=== PATIENT | male | born 1965 | race Two or more races ===

== ENCOUNTER 2017-07-26 16:39 | Emergency (ER) | payer SELFPAY ==
[2017-07-26] MEDS ORDERED: Sodium Chloride 0.9% 1,000 ML IV STA (17:17)
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
[2017-07-26 17:50] LABS: BASO % 0.3 % (0.0-2.0); EOS # 0.2 K/uL (0.0-0.7); EOS % 1.4 % (0.0-4.0); HEMOGLOBIN 13.4 g/dL (12.0-18.0); LYMPH # 2.3 K/uL (1.0-4.3); LYMPH % 20.1 % (20.0-40.0); MEAN CORPUSCULAR HEMOGLOBIN 29.5 pg (27.0-31.0); MEAN CORPUSCULAR HGB CONC 32.7 g/dL (33.0-37.0); MEAN PLATELET VOLUME 8.6 fl (7.2-11.7); MONO # 1.3 K/uL (0.0-0.8); MONO % 11.2 % (0.0-10.0); NEUT # 7.7 K/uL (1.8-7.0); RBC 4.56 Mil/uL (4.40-5.90); RED CELL DISTRIBUTION WIDTH 13.1 % (11.5-14.5); WHITE BLOOD COUNT 11.5 K/uL (4.8-10.8)
[2017-07-26 17:59] LABS: ALB/GLOB RATIO 1.3 (1.0-2.1); ALBUMIN 4.5 g/dL (3.5-5.0); ALT/SGPT 56 U/L (21-72); AST/SGOT 64 U/L (17-59); BLOOD UREA NITROGEN 14 mg/dl (9-20); CALCIUM 8.8 mg/dL (8.4-10.2); GFR AFRICAN-AMERICAN > 60; GFR NON-AFRICAN AMERICAN > 60
--- NOTE | 2017-07-26 18:11 | CT ---
PROCEDURE: CT HEAD WITHOUT CONTRAST. HISTORY: ETOH, Head injury COMPARISON: None available. TECHNIQUE: Axial computed tomography images were obtained through the head/brain without intravenous contrast. Radiation dose: Total exam DLP = 845.06 mGy-cm. This CT exam was performed using one or more of the following dose reduction techniques: Automated exposure control, adjustment of the mA and/or kV according to patient size, and/or use of iterative reconstruction technique. FINDINGS: HEMORRHAGE: No acute parenchymal, subarachnoid or extra-axial hemorrhage. . BRAIN: There is a vague area of low attenuation in the left perifrontal horn white matter that probably represents an area of chronic ischemia. . Suspect very minimal chronic periventricular white matter ischemic changes as well. Ventricular and sulcal size are within range of normal for this patient's stated age. Note made of a tiny elliptical shaped extra-axial calcification bordering the inner table of the left frontotemporal region that may represent a tiny at dural based calcification however the possibility of an incidental very tiny meningioma cannot be excluded. VENTRICLES: No obstructive hydrocephalus. CALVARIUM: There are no acute calvarial fractures. Probable left anterior nasal bone fracture deformity felt be chronic due to the lack of significant overlying soft tissue swelling. PARANASAL SINUSES: Unremarkable as visualized. No significant inflammatory changes. MASTOID AIR CELLS: Unremarkable as visualized. No inflammatory changes. OTHER FINDINGS: None. IMPRESSION: No acute intracranial hemorrhage. Probable chronic ischemic focus in the left perifrontal horn white matter. Suspect minimal chronic periventricular white matter ischemic changes. Probable small dural base calcification left frontotemporal region however the possibility of a very tiny calcified meningioma not excluded. Chronic left-sided anterior nasal bone fracture deformity.
[2017-07-26] MEDS ORDERED: Potassium CL 10mEq/100ml 100 ML IVPB ONE (20:00)
--- NOTE | 2017-07-26 20:25 | ED PDOC ---
- Laboratory Results Result Diagrams: 07/26/17 17:45 07/26/17 17:45 - ECG O2 Sat by Pulse Oximetry: 96 Pulse Ox Interpretation: Normal Medical Decision Making Medical Decision Making: Case was signed out to medical underwriter from DARYA Deluca pending sobriety and final disposition 8:30 pm: patient is asleep, arousable, vital signs stable 10:30 pm: patient is arousable, still has slurred speech, vital signs stable, will continue to monitor 12:30 am: patient is asleep, more alert but still intoxicated, vital signs are stable 2:30 am: Patient is awake and alert, with steady gait, he is stable for discharge. Disposition - Clinical Impression Clinical Impression: Alcohol abuse with intoxication - POA Present On Arrival: None - Disposition Referrals: [facility] [Outside] Disposition: Routine/Home Disposition Time: 02:30 Condition: STABLE Instructions: Alcohol Intoxication (ED) Forms: [facility] (Uzbek) Print Language: KHMER
[2017-07-27 05:13] VITALS: BP 138/78; PULSE 86; RESP 18; TEMP 98.9
[2017-07-27 05:14] VITALS: O2SAT 96
== END 2017-07-27 02:30 | disposition home or self-care (01) ==
LOC: H.ER 16:39 → EDBD 16:39 → H.ER 07-27 02:30
DX: F10.129 Alcohol abuse with intoxication, unspecified (principal); S01.81XA Laceration without foreign body of other part of head, initial encounter; S00.81XA Abrasion of other part of head, initial encounter; W19.XXXA Unspecified fall, initial encounter; Y92.89 Other specified places as the place of occurrence of the external cause
CPT/HCPCS: 70450; 80053; 82948; 85025; 96360; 99283; G0480; J7040

== ENCOUNTER 2018-08-21 01:12 | Inpatient (IN) | payer MEDICAID, MEDICARE, OTHER ==
--- NOTE | 2018-08-21 02:10 | ED PDOC ---
HPI: Chest Pain Time Seen by Provider: 08/21/18 01:27 Chief Complaint (Nursing): Shortness Of Breath Chief Complaint (Provider): Chest Pain History Per: EMS History/Exam Limitations: intoxication Additional Complaint(s): 52 years old male with no PMHx brought in by EMS for evaluation of chest pain. On arrival, patient appears intoxicated, unable provide history to provider. Per EMS, patient is homeless. PMD: None provided Past Medical History Reviewed: Historical Data, Nursing Documentation, Vital Signs Vital Signs: Last Vital Signs Temp 97.1 F L 08/21/18 01:15 Pulse 111 H 08/21/18 01:15 Resp 16 08/21/18 02:02 BP 192/86 H 08/21/18 01:15 Pulse Ox 100 08/21/18 02:02 - Medical History PMH: No Chronic Diseases - Surgical History Surgical History: No Surg Hx - Family History Family History: States: Unknown Family Hx - Social History Current smoker - smoking cessation education provided: No (Unknown) Alcohol: Other (Unknown) Drugs: Other (Unknown) - Immunization History Hx Tetanus Toxoid Vaccination: (Pt nonverbal) Hx Influenza Vaccination: (Pt nonverbal) Hx Pneumococcal Vaccination: (Pt nonverbal) - Home Medications Home Medications: Ambulatory Orders Medication Instructions Recorded RX: Unobtainable 08/21/18 - Allergies Allergies/Adverse Reactions: Allergies Allergy/AdvReac Type Severity Reaction Status Date / Time No Known Allergies Allergy Verified 08/21/18 01:17 Review of Systems Review Of Systems: ROS cannot be obtained secondary to pt's inabilty to answer questions. Physical Exam - Reviewed Nursing Documentation Reviewed: Yes Vital Signs Reviewed: Yes - Physical Exam Appears: Positive for: No Acute Distress Head Exam: Positive for: ATRAUMATIC, NORMOCEPHALIC Skin: Positive for: Normal Color, Warm, Dry Eye Exam: Positive for: Normal appearance, EOMI, PERRL ENT: Positive for: Normal ENT Inspection Neck: Positive for: Normal, Painless ROM, Supple Cardiovascular/Chest: Positive for: Regular Rate, Rhythm. Negative for: Murmur Respiratory: Positive for: Normal Breath Sounds. Negative for: Respiratory Distress Gastrointestinal/Abdominal: Positive for: Normal Exam, Soft. Negative for: Te nderness Back: Positive for: Normal Inspection. Negative for: L CVA Tenderness, R CVA Tenderness Extremity: Positive for: Normal ROM. Negative for: Pedal Edema, Swelling Neurologic/Psych: Positive for: Alert, Other (Speech slurred) - Laboratory Results Result Diagrams: 08/21/18 02:11 08/21/18 02:11 - ECG O2 Sat by Pulse Oximetry: 100 (RA) Pulse Ox Interpretation: Normal Medical Decision Making Medical Decision Making: Time: 127 Initial Impression: 52 years old male with chest pain, as reported by history alcohol intoxication. 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 Normal size of the ventricles and extra-axial spaces for the patient's age. Normal white matter tracts of the supratentorial brain. Normal basal ganglia and thalami. Normal brainstem. Normal cerebellum. There is no demonstrated extra-axial, intraparenchymal, or intraventricular hemorrhage. There are no findings of an acute ischemic infarction. Normal calvarium. There is no demonstrated fracture. Normal soft tissue structures. Normal visualized paranasal sinuses. IMPRESSION: Normal unenhanced CT scan of the brain. 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 0628 Labs reviewed and show no clinically significant abnormality. CXR shows no active disease. Patient is more conversant and admits to heavy smoking. Patient received 3 Duonebs, SOLU-Medrol and Narcan and has persistent tachypnea and hypoxia. Will place on observation for COPD exacerbation. Case referred to Dr. Ramirez. Scribe Attestation: Documented by Fatoumata Esteves, acting as a scribe for Rayray Cobb MD. Provider Scribe Attestation: All medical record entries made by the Scribe were at my direction and personally dictated by me. I have reviewed the chart and agree that the record accurately reflects my personal performance of the history, physical exam, medical decision making, and the department course for this patient. Disposition - Clinical Impression Clinical Impression: COPD exacerbation - Patient ED Disposition Is Patient to be Admitted: Yes - Disposition Disposition Time: 06:28 Condition: FAIR
[2018-08-21] MEDS ORDERED: Albuterol-Ipratrop 3 mg / 0.5 (3 ml) UD INH STA ×2 (02:11→04:42)
[2018-08-21 02:17] LABS: BASO # 0.1 K/uL (0.0-0.2); BASO % 0.4 % (0.0-2.0); EOS # 0.4 K/uL (0.0-0.7); EOS % 2.6 % (0.0-4.0); HEMOGLOBIN 11.9 g/dL (12.0-18.0); LYMPH # 1.4 K/uL (1.0-4.3); LYMPH % 9.8 % (20.0-40.0); MEAN CELL VOLUME 90.7 fl (80.0-94.0); MEAN CORPUSCULAR HEMOGLOBIN 29.4 pg (27.0-31.0); MEAN CORPUSCULAR HGB CONC 32.5 g/dL (33.0-37.0); MEAN PLATELET VOLUME 7.5 fl (7.2-11.7); MONO # 1.2 K/uL (0.0-0.8); MONO % 8.6 % (0.0-10.0); NEUT # 11.3 K/uL (1.8-7.0); NEUT % 78.6 % (50.0-75.0); PLATELET COUNT 332 K/uL (130-400); RBC 4.05 Mil/uL (4.40-5.90); RED CELL DISTRIBUTION WIDTH 12.8 % (11.5-14.5); WHITE BLOOD COUNT 14.4 K/uL (4.8-10.8)
[2018-08-21 02:27] LABS: ALB/GLOB RATIO 0.9 (1.0-2.1); ALBUMIN 3.5 g/dL (3.5-5.0); ALT/SGPT 35 U/L (21-72); AST/SGOT 31 U/L (17-59); BLOOD UREA NITROGEN 10 mg/dl (9-20); CALCIUM 8.7 mg/dL (8.4-10.2); GFR NON-AFRICAN AMERICAN > 60
[2018-08-21] MEDS ORDERED: Albuterol-Ipratrop 3 mg / 0.5 (3 ml) UD ONE ×2 (02:29→05:07)
[2018-08-21] MEDS ORDERED: Naloxone 0.4 mg/ml Inj (Adult) IVP ONE (03:14)
[2018-08-21] MEDS ORDERED: Naloxone 0.4 mg/ml Inj (Adult) ONE (03:32)
[2018-08-21 04:37] LABS: ANISOCYTOSIS SLIGHT; BANDS 1 % (0-2); BASOPHIL 1 % (0-2); EOSINOPHIL 2 % (0-7); LYMPHOCYTE 5 % (20-50); MONOCYTE 7 % (0-10); NEUTROPHIL 84 % (42-75); PLATELET ESTIMATE NORMAL (NORMAL); TOTAL CELLS COUNTED 100
[2018-08-21 04:38] LABS: HYPOCHROMIC SLIGHT; LARGE PLATELETS PRESENT; SPHEROCYTES SLIGHT
[2018-08-21] MEDS ORDERED: Magnesium Sulfate 2 gm/50 ml 2 GM/50 ML BAG IV STA (04:42)
[2018-08-21] MEDS ORDERED: Magnesium Sulfate 2 gm/50 ml 2 GM/50 ML BAG ONE (05:06)
[2018-08-21 06:21] LABS: SQUAMOUS EPITHIAL < 1 /hpf (0-5); URINE BACTERIA RARE (<OCC); URINE BILIRUBIN NEGATIVE (NEGATIVE); URINE BLOOD SMALL (NEGATIVE); URINE CLARITY CLOUDY (Clear); URINE COLOR YELLOW (YELLOW); URINE GLUCOSE (UA) NEG (NEGATIVE); URINE LEUKOCYTE ESTERASE NEG Leu/uL (Negative); URINE PROTEIN 100 mg/dL (NEGATIVE)
[2018-08-21 06:25] LABS: BARBITURATES, UR NEGATIVE (NEGATIVE); BENZODIAZEPINES, UR NEGATIVE (NEGATIVE); OPIATES, UR NEGATIVE (NEGATIVE); PHENCYCLIDINE, UR NEGATIVE (NEGATIVE)
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
[2018-08-21] MEDS ORDERED: methylPREDNISolone 40 MG in Sodium Chloride 0.9% 50 ML IVPB SCH (10:00)
--- NOTE | 2018-08-21 10:32 | CT ---
Date of service: 08/21/2018 PROCEDURE: CT HEAD WITHOUT CONTRAST. HISTORY: weakness COMPARISON: 07/26/2017. CT head TECHNIQUE: Axial computed tomography images were obtained through the head/brain without intravenous contrast. Supplemental Coronal and Sagittal projections created and reviewed. Radiation dose: Total exam DLP = <inf_radiation_dlp> mGy-cm. This CT exam was performed using one or more of the following dose reduction techniques: Automated exposure control, adjustment of the mA and/or kV according to patient size, and/or use of iterative reconstruction technique. FINDINGS: HEMORRHAGE: No intracranial hemorrhage. BRAIN: No mass effect or edema. No atrophy or chronic microvascular ischemic changes. VENTRICLES: Unremarkable. No hydrocephalus. CALVARIUM: Unremarkable. PARANASAL SINUSES: Unremarkable as visualized. No significant inflammatory changes. MASTOID AIR CELLS: Unremarkable as visualized. No inflammatory changes. OTHER FINDINGS: None. IMPRESSION: No acute intracranial abnormalities. No significant findings to account for the clinical presentation. No significant interval change compared to the prior examination(s). Concordant results (preliminary interpretation) provided by [facility]. Procedure Completed: 04:51. Preliminary Report: Dictated and Authenticated: 05:18. Final Interpretation: 10:28.
[2018-08-21] MEDS: Albuterol-Ipratrop 3 mg / 0.5 (3 ml) UD INH SCH ×4 (11:13→23:09)
[2018-08-21] MEDS: guaiFENesin 600 mg ER Tab PO SCH ×2 (11:37→21:33)
[2018-08-21] MEDS: MethylPREDNISolone 40 mg Vial IVP SCH ×3 (11:38→22:22)
[2018-08-21] MEDS: Azithromycin 500 MG in Sodium Chloride 0.9% 250 ML IVPB SCH (11:39)
[2018-08-21] MEDS: Insulin Regular 100 units/ml SC SCH ×3 (11:50→22:44)
[2018-08-21] MEDS ORDERED: Dextrose 50% SYRINGE Inj (50 ml) IV PRN (12:08)
[2018-08-21] MEDS ORDERED: Glucagon Recombinant 1 mg Inj IM PRN (12:08)
[2018-08-21 12:28] VITALS: BMI 28.0
[2018-08-21] MEDS: Sodium Chloride 0.9% 1,000 ML IV SCH ×2 (12:58→20:05)
[2018-08-21] MEDS ORDERED: Insulin Regular 100 units/ml IV ONE (13:58)
--- NOTE | 2018-08-21 14:21 | RAD ---
Date of service: 08/21/2018 HISTORY: Chest pain. COMPARISON: No prior. FINDINGS: LUNGS: No active pulmonary disease. PLEURA: No significant pleural effusion identified, no pneumothorax apparent. CARDIOVASCULAR: No atherosclerotic calcification present No radiographic findings to suggest acute or significant cardiovascular disease. OSSEOUS STRUCTURES: No significant abnormalities. VISUALIZED UPPER ABDOMEN: Normal. OTHER FINDINGS: None. IMPRESSION: No active disease.
[2018-08-21] MEDS: Enoxaparin 40 mg Syringe SC SCH (14:34)
--- NOTE | 2018-08-21 14:35 | CP.PCM.CON ---
History of Present Illness - History of Present Illness History of Present Illness: 52 y/o M with PMHx of HTN, DM, diabetes, COPD and alcohol abuse brought to ED by EMS after patient was found altered mentation and and reporting chest pain on street. pt on evaluation reported psychiatric diagnosis of alcohol dependence and depression, reported experiencing non command auditory hallucinations during alcohol withdrawal, has previous hospitalizations at [facility] for depression and alcohol withdrawal , currently non compliant with treatment or follow up pt at current mental status , oriented to person , place and time, reported feeling down with constricted affect, thought form circumstantial, reported non command auditory hallucinations of faint voices, denied any current suicidal or homicidal ideation, fair insight and judgment Past Patient History - Past Social History Alcohol: Other (Unknown) Drugs: Other (Unknown) - PSYCHIATRIC Hx Substance Use: (Pt nonverbal) Meds Allergies/Adverse Reactions: Allergies Allergy/AdvReac Type Severity Reaction Status Date / Time No Known Allergies Allergy Verified 08/21/18 01:17 - Medications Medications: Current Medications Albuterol/Ipratropium (Duoneb 3 Mg/0.5 Mg (3 Ml) Ud) 3 ml INH RQ4 [facility] Last Admin: 08/21/18 11:13 Dose: Not Given Dextrose (Dextrose 50% Inj) 0 ml IV STAT PRN; Protocol PRN Reason: Hypoglycemia Protocol Dextrose (Glutose 15) 0 gm PO ONCE PRN; Protocol PRN Reason: Hypoglycemia Protocol Enoxaparin Sodium (Lovenox) 40 mg SC DAILY [facility]; Protocol Glucagon (Glucagen Diagnostic Kit) 0 mg IM STAT PRN; Protocol PRN Reason: Hypoglycemia Protocol Guaifenesin (Mucinex La) 600 mg PO Q12 [facility] Last Admin: 08/21/18 11:37 Dose: 600 mg Azithromycin 500 mg/ Sodium (Chloride) 250 mls @ 250 mls/hr IVPB DAILY [facility]; Protocol Last Admin: 08/21/18 11:39 Dose: 250 mls/hr Sodium Chloride (Sodium Chloride 0.9%) 1,000 mls @ 150 mls/hr IV .Q6H40M [facility] Stop: 08/22/18 12:16 Last Admin: 08/21/18 12:58 Dose: 150 mls/hr Insulin Human Regular (Humulin R) 0 units SC ACHS [facility]; Protocol Last Admin: 08/21/18 11:50 Dose: 6 units Methylprednisolone (Solu-Medrol) 40 mg IVP Q6H [facility] Last Admin: 08/21/18 11:38 Dose: 40 mg Nystatin (Nystop Topical Powder) 1 applic TOP TID [facility] Results - Vital Signs Recent Vital Signs: Last Vital Signs Temp 98.0 F 08/21/18 09:16 Pulse 102 H 08/21/18 09:16 Resp 22 08/21/18 09:16 BP 125/74 08/21/18 09:16 Pulse Ox 95 08/21/18 09:16 - Labs Result Diagrams: 08/21/18 02:11 08/21/18 02:11 Labs: Laboratory Results - last 24 hr 08/21/18 08/21/18 08/21/18 02:01 02:11 02:11 WBC 14.4 H RBC 4.05 L Hgb 11.9 L Hct 36.8 MCV 90.7 MCH 29.4 MCHC 32.5 L RDW 12.8 Plt Count 332 D MPV 7.5 Neut % (Auto) 78.6 H Lymph % (Auto) 9.8 L [place] % (Auto) 8.6 Eos % (Auto) 2.6 Baso % (Auto) 0.4 Neut # (Auto) 11.3 H Lymph # (Auto) 1.4 [place] # (Auto) 1.2 H Eos # (Auto) 0.4 Baso # (Auto) 0.1 Neutrophils % (Manual) 84 H Band Neutrophils % 1 Lymphocytes % (Manual) 5 L Monocytes % (Manual) 7 Eosinophils % (Manual) 2 Basophils % (Manual) 1 Platelet Estimate Normal Large Platelets Present Hypochromasia (manual) Slight Anisocytosis (manual) Slight Spherocytes Slight Sodium 134 Potassium 4.4 Chloride 90 L Carbon Dioxide 32 H Anion Gap 16 BUN 10 Creatinine 0.6 L Est GFR ( Amer) > 60 Est GFR (Non-Af Amer) > 60 POC Glucose (mg/dL) 214 H Random Glucose 224 H Calcium 8.7 Total Bilirubin 0.3 AST 31 ALT 35 Alkaline Phosphatase 112 Troponin I < 0.0120 NT-Pro-B Natriuret Pep Total Protein 7.3 Albumin 3.5 D Globulin 3.8 Albumin/Globulin Ratio 0.9 L Urine Color Urine Clarity Urine pH Ur Specific [place] Urine Protein Urine Glucose (UA) Urine Ketones Urine Blood Urine Nitrate Urine Bilirubin Urine Urobilinogen Ur Leukocyte Esterase Urine RBC (Auto) Urine Microscopic WBC Ur Squamous Epith Cells Urine Bacteria Urine Opiates Screen Urine Methadone Screen Ur Barbiturates Screen Ur Phencyclidine Scrn Ur Amphetamines Screen U Benzodiazepines Scrn U Oth Cocaine Metabols U Cannabinoids Screen Alcohol, Quantitative < 10 08/21/18 08/21/18 08/21/18 05:45 05:45 05:45 WBC RBC Hgb Hct MCV MCH MCHC RDW Plt Count MPV Neut % (Auto) Lymph % (Auto) [place] % (Auto) Eos % (Auto) Baso % (Auto) Neut # (Auto) Lymph # (Auto) [place] # (Auto) Eos # (Auto) Baso # (Auto) Neutrophils % (Manual) Band Neutrophils % Lymphocytes % (Manual) Monocytes % (Manual) Eosinophils % (Manual) Basophils % (Manual) Platelet Estimate Large Platelets Hypochromasia (manual) Anisocytosis (manual) Spherocytes Sodium Potassium Chloride Carbon Dioxide Anion Gap BUN Creatinine Est GFR ( Amer) Est GFR (Non-Af Amer) POC Glucose (mg/dL) Random Glucose Calcium Total Bilirubin AST ALT Alkaline Phosphatase Troponin I NT-Pro-B Natriuret Pep 268 Total Protein Albumin Globulin Albumin/Globulin Ratio Urine Color Yellow Urine Clarity Cloudy Urine pH 5.0 Ur Specific [place] 1.026 Urine Protein 100 Urine Glucose (UA) Neg Urine Ketones Negative Urine Blood Small Urine Nitrate Negative Urine Bilirubin Negative Urine Urobilinogen 2.0 Ur Leukocyte Esterase Neg Urine RBC (Auto) 4 H Urine Microscopic WBC 4 Ur Squamous Epith Cells < 1 Urine Bacteria Rare Urine Opiates Screen Negative Urine Methadone Screen Negative Ur Barbiturates Screen Negative Ur Phencyclidine Scrn Negative Ur Amphetamines Screen Negative U Benzodiazepines Scrn Negative U Oth Cocaine Metabols Negative U Cannabinoids Screen Negative Alcohol, Quantitative 08/21/18 08/21/18 11:38 11:39 WBC RBC Hgb Hct MCV MCH MCHC RDW Plt Count MPV Neut % (Auto) Lymph % (Auto) [place] % (Auto) Eos % (Auto) Baso % (Auto) Neut # (Auto) Lymph # (Auto) [place] # (Auto) Eos # (Auto) Baso # (Auto) Neutrophils % (Manual) Band Neutrophils % Lymphocytes % (Manual) Monocytes % (Manual) Eosinophils % (Manual) Basophils % (Manual) Platelet Estimate Large Platelets Hypochromasia (manual) Anisocytosis (manual) Spherocytes Sodium Potassium Chloride Carbon Dioxide Anion Gap BUN Creatinine Est GFR ( Amer) Est GFR (Non-Af Amer) POC Glucose (mg/dL) > 500 H* 497 H* Random Glucose Calcium Total Bilirubin AST ALT Alkaline Phosphatase Troponin I NT-Pro-B Natriuret Pep Total Protein Albumin Globulin Albumin/Globulin Ratio Urine Color Urine Clarity Urine pH Ur Specific [place] Urine Protein Urine Glucose (UA) Urine Ketones Urine Blood Urine Nitrate Urine Bilirubin Urine Urobilinogen Ur Leukocyte Esterase Urine RBC (Auto) Urine Microscopic WBC Ur Squamous Epith Cells Urine Bacteria Urine Opiates Screen Urine Methadone Screen Ur Barbiturates Screen Ur Phencyclidine Scrn Ur Amphetamines Screen U Benzodiazepines Scrn U Oth Cocaine Metabols U Cannabinoids Screen Alcohol, Quantitative Assessment & Plan - Assessment and Plan (Free Text) Assessment: alcohol dependence alcohol induced psychotic disorder with hallucinations depression Plan: recommend starting ativan 1mg tid for possible alcohol withdrawal to avoid DT'S as pt stated he has been using alcohol unspecified amount prior to admission monitor pt for symptoms and signs of alcohol withdrawal start risperidone 0.5 mg bid start trazodone 50mg qhs prn for insomnia psychiatry to follow up on pt upon medical clearance for possible admission for medication stabilization
[2018-08-21] MEDS ORDERED: Influenza Vaccine (5 YR UP)/PF 60 MCG/0.5 ML SYR IM ONE (15:13)
[2018-08-21] MEDS ORDERED: Influenza Vaccine 60 mcg/0.5 mL SYR (4YR UP) IM ONE (15:15)
[2018-08-21] MEDS ORDERED: Pneumococcal 23-Valent Vaccine IM ONE (15:17)
[2018-08-22] MEDS: Sodium Chloride 0.9% 1,000 ML IV SCH ×2 (02:39→09:53)
[2018-08-22] MEDS: MethylPREDNISolone 40 mg Vial IVP SCH ×4 (05:00→21:42)
[2018-08-22] MEDS: Albuterol-Ipratrop 3 mg / 0.5 (3 ml) UD INH SCH ×6 (05:11→23:46)
[2018-08-22 07:29] LABS: BASO % 0.2 % (0.0-2.0); HEMOGLOBIN 11.2 g/dL (12.0-18.0); LYMPH # 0.9 K/uL (1.0-4.3); LYMPH % 5.5 % (20.0-40.0); MEAN CELL VOLUME 90.1 fl (80.0-94.0); MEAN CORPUSCULAR HEMOGLOBIN 29.4 pg (27.0-31.0); MEAN CORPUSCULAR HGB CONC 32.7 g/dL (33.0-37.0); MEAN PLATELET VOLUME 7.9 fl (7.2-11.7); MONO # 0.9 K/uL (0.0-0.8); MONO % 5.6 % (0.0-10.0); NEUT # 14.8 K/uL (1.8-7.0); NEUT % 88.7 % (50.0-75.0); RBC 3.79 Mil/uL (4.40-5.90); RED CELL DISTRIBUTION WIDTH 13.2 % (11.5-14.5); WHITE BLOOD COUNT 16.7 K/uL (4.8-10.8)
[2018-08-22 07:50] LABS: ALBUMIN 3.2 g/dL (3.5-5.0); ALT/SGPT 34 U/L (21-72); AST/SGOT 17 U/L (17-59); BLOOD UREA NITROGEN 17 mg/dl (9-20); CALCIUM 8.5 mg/dL (8.4-10.2); GFR NON-AFRICAN AMERICAN > 60; HDL CHOLESTEROL 43 MG/DL (30-70); LDL CHOLESTEROL 73 mg/dL (0-129)
[2018-08-22] MEDS: Enoxaparin 40 mg Syringe SC SCH (08:55)
[2018-08-22] MEDS: Multivitamin With Minerals Tab PO SCH (08:55)
[2018-08-22] MEDS: Insulin Regular 100 units/ml SC SCH ×4 (08:56→22:47)
[2018-08-22] MEDS: Azithromycin 500 MG in Sodium Chloride 0.9% 250 ML IVPB SCH (09:00)
[2018-08-22] MEDS: GlipiZIDE 5 mg SR Tab PO SCH (09:45)
[2018-08-22] MEDS: guaiFENesin 600 mg ER Tab PO SCH ×2 (09:57→21:42)
--- NOTE | 2018-08-22 10:01 | CP.PCM.PN ---
Subjective - Date & Time of Evaluation Date of Evaluation: 08/22/18 Time of Evaluation: 08:00 - Subjective Subjective: Patient see and examined bedside. Patient denies SOB, using O2 nc 2L. Patient has been refusing nebs treatment, wheezing noted. no overnight events. denies fever, chest pain, cough, dysuria. BS better controlled after insulin treatment yesterday. Pt explained the importance of nebs treatment. pt verbalized understanding. will start glucotrol today c/w psyq management Objective - Vital Signs/Intake and Output Vital Signs (last 24 hours): Temp Pulse Resp BP Pulse Ox 97.6 F 61 20 121/71 100 08/22/18 08:20 08/22/18 08:20 08/22/18 08:20 08/22/18 08:20 08/22/18 08:20 - Medications Medications: Current Medications Albuterol/Ipratropium (Duoneb 3 Mg/0.5 Mg (3 Ml) Ud) 3 ml INH RQ4 [facility] Last Admin: 08/22/18 07:04 Dose: Not Given Dextrose (Dextrose 50% Inj) 0 ml IV STAT PRN; Protocol PRN Reason: Hypoglycemia Protocol Dextrose (Glutose 15) 0 gm PO ONCE PRN; Protocol PRN Reason: Hypoglycemia Protocol Enoxaparin Sodium (Lovenox) 40 mg SC DAILY [facility]; Protocol Last Admin: 08/22/18 08:55 Dose: 40 mg Folic Acid (Folic Acid) 1 mg PO DAILY [facility] Last Admin: 08/22/18 08:55 Dose: 1 mg Glipizide (Glucotrol Xl) 5 mg PO BRK [facility] Last Admin: 08/22/18 09:45 Dose: 5 mg Glucagon (Glucagen Diagnostic Kit) 0 mg IM STAT PRN; Protocol PRN Reason: Hypoglycemia Protocol Guaifenesin (Mucinex La) 600 mg PO Q12 [facility] Last Admin: 08/21/18 21:33 Dose: 600 mg Azithromycin 500 mg/ Sodium (Chloride) 250 mls @ 250 mls/hr IVPB DAILY [facility]; Protocol Last Admin: 08/22/18 09:00 Dose: 250 mls/hr Sodium Chloride (Sodium Chloride 0.9%) 1,000 mls @ 150 mls/hr IV .Q6H40M [facility] Stop: 08/22/18 12:16 Last Admin: 08/22/18 09:53 Dose: Not Given Insulin Human Regular (Humulin R) 0 units SC ACHS [facility]; Protocol Last Admin: 08/22/18 08:56 Dose: 2 units Lorazepam (Ativan) 1 mg PO TID [facility] Last Admin: 08/22/18 09:13 Dose: 1 mg Methylprednisolone (Solu-Medrol) 40 mg IVP Q6H [facility] Last Admin: 08/22/18 09:32 Dose: 40 mg Multivitamins/Minerals (Therapeutic-M Tab) 1 tab PO DAILY [facility] Last Admin: 08/22/18 08:55 Dose: 1 tab Nicotine (Nicoderm Cq) 1 patch TD DAILY [facility] Last Admin: 08/22/18 08:58 Dose: 1 patch Nystatin (Nystop Topical Powder) 1 applic TOP TID [facility] Last Admin: 08/22/18 08:59 Dose: 1 applic Risperidone (Risperdal Tab) 0.5 mg PO BID [facility] Last Admin: 08/22/18 08:59 Dose: 0.5 mg Thiamine HCl (Vitamin B1 Tab) 100 mg PO DAILY [facility] Last Admin: 08/22/18 08:55 Dose: 100 mg Trazodone HCl (Desyrel) 50 mg PO HS PRN PRN Reason: Insomnia - Labs Labs: 08/22/18 05:30 08/22/18 05:30 - Constitutional Appears: No Acute Distress - Respiratory Exam Respiratory Exam: Rales, Wheezes - Cardiovascular Exam Cardiovascular Exam: REGULAR RHYTHM, +S1, +S2 - Psychiatric Exam Psychiatric exam: Normal Affect Assessment and Plan - Assessment and Plan (Free Text) Plan: 52 y/o M with PMHx of HTN, DM, diabetes, COPD and alcohol abuse admitted for COPD exacerbation and confusion, brought to ER by EMS for evaluation. Pt found in the street confused,with wheezing and Dyspnea at rest Assessment/Plan 1) COPD exacerbation c/w duoneb selvin q4h -solumedrol 40 mg IV Q86h -CXR no active disease -Azithromycin 500 mg IV daily and Mucinex 2) AMS -CT Head no intracraneal hemorrhage -may be 2/2 metabolic encephalopathy -Psych consult appreciated started Risperdal, Ativan and Trazodone. -may be transfered to psyq unit 3) ETOH abuse -ETOH level less than 10 - withdrawal precautions. -CIWA score 0 - Ativan 1mg TID selvin -c/w Start Thiamine, Folic acid 4) DM - Uncontrolled -start glucotrol XL 5 mg daily -SSI -f/u hgb a1c 5) HTN -chronic -controlled on admission - no on medications -will monitor 6) Rash, likely fungal - UA unremarkable - Start nystatin powder TID 7) DVT prophylaxis -lovenox 40 mg sc daily
[2018-08-22] MEDS ORDERED: Insulin Lispro (humaLOG) 100 Units/ml Inj SC STA (22:14)
[2018-08-23] MEDS ORDERED: Insulin Lispro (humaLOG) 100 Units/ml Inj SC ONE (00:24)
[2018-08-23] MEDS: MethylPREDNISolone 40 mg Vial IVP SCH ×3 (04:45→17:06)
[2018-08-23] MEDS: Albuterol-Ipratrop 3 mg / 0.5 (3 ml) UD INH SCH ×6 (05:02→23:09)
[2018-08-23 06:56] LABS: BASO % 0.1 % (0.0-2.0); HEMOGLOBIN 11.2 g/dL (12.0-18.0); LYMPH # 0.7 K/uL (1.0-4.3); LYMPH % 5.9 % (20.0-40.0); MEAN CELL VOLUME 90.5 fl (80.0-94.0); MEAN CORPUSCULAR HEMOGLOBIN 29.7 pg (27.0-31.0); MEAN CORPUSCULAR HGB CONC 32.8 g/dL (33.0-37.0); MEAN PLATELET VOLUME 7.8 fl (7.2-11.7); MONO # 0.7 K/uL (0.0-0.8); MONO % 5.9 % (0.0-10.0); NEUT # 10.3 K/uL (1.8-7.0); NEUT % 88.1 % (50.0-75.0); RBC 3.77 Mil/uL (4.40-5.90); RED CELL DISTRIBUTION WIDTH 13.2 % (11.5-14.5); WHITE BLOOD COUNT 11.7 K/uL (4.8-10.8)
[2018-08-23 07:42] LABS: ALB/GLOB RATIO 0.9 (1.0-2.1); ALBUMIN 2.9 g/dL (3.5-5.0); ALT/SGPT 25 U/L (21-72); AST/SGOT 14 U/L (17-59); BLOOD UREA NITROGEN 15 mg/dl (9-20); CALCIUM 8.8 mg/dL (8.4-10.2); GFR NON-AFRICAN AMERICAN > 60
[2018-08-23] MEDS: Insulin Lispro (humaLOG) 100 Units/ml Inj SC SCH ×4 (07:45→22:19)
[2018-08-23] MEDS: Multivitamin With Minerals Tab PO SCH (09:47)
[2018-08-23] MEDS: Enoxaparin 40 mg Syringe SC SCH (09:47)
[2018-08-23] MEDS: GlipiZIDE 5 mg SR Tab PO SCH (09:47)
[2018-08-23] MEDS: Azithromycin 500 MG in Sodium Chloride 0.9% 250 ML IVPB SCH (09:49)
[2018-08-23] MEDS: guaiFENesin 600 mg ER Tab PO SCH ×2 (09:50→21:37)
--- NOTE | 2018-08-23 11:12 | CP.PCM.PN ---
Subjective - Date & Time of Evaluation Date of Evaluation: 08/23/18 Time of Evaluation: 08:10 - Subjective Subjective: Patient seen and examined bedside, reports feeling better, denies SOB,not using O2 nc. Still noticed wheezing. pt has not refused again neb treatment. pt agree to psy transfer tomorrow. Objective - Vital Signs/Intake and Output Vital Signs (last 24 hours): Temp Pulse Resp BP Pulse Ox 97.3 F L 83 20 163/82 H 95 08/23/18 08:29 08/23/18 08:29 08/23/18 08:29 08/23/18 08:29 08/23/18 08:29 - Medications Medications: Current Medications Albuterol/Ipratropium (Duoneb 3 Mg/0.5 Mg (3 Ml) Ud) 3 ml INH RQ4 [facility] Last Admin: 08/23/18 11:04 Dose: 3 ml Dextrose (Dextrose 50% Inj) 0 ml IV STAT PRN; Protocol PRN Reason: Hypoglycemia Protocol Dextrose (Glutose 15) 0 gm PO ONCE PRN; Protocol PRN Reason: Hypoglycemia Protocol Enoxaparin Sodium (Lovenox) 40 mg SC DAILY [facility]; Protocol Last Admin: 08/23/18 09:47 Dose: 40 mg Folic Acid (Folic Acid) 1 mg PO DAILY [facility] Last Admin: 08/23/18 09:45 Dose: 1 mg Glipizide (Glucotrol Xl) 5 mg PO BRK [facility] Last Admin: 08/23/18 09:47 Dose: 5 mg Glucagon (Glucagen Diagnostic Kit) 0 mg IM STAT PRN; Protocol PRN Reason: Hypoglycemia Protocol Guaifenesin (Mucinex La) 600 mg PO Q12 [facility] Last Admin: 08/23/18 09:50 Dose: 600 mg Azithromycin 500 mg/ Sodium (Chloride) 250 mls @ 250 mls/hr IVPB DAILY [facility]; Protocol Last Admin: 08/23/18 09:49 Dose: 250 mls/hr Insulin Human Lispro (Humalog) 0 units SC ACCU-CHECK [facility]; Protocol Last Admin: 08/23/18 07:45 Dose: 4 u Lorazepam (Ativan) 1 mg PO TID [facility] Last Admin: 08/23/18 09:45 Dose: 1 mg Metformin HCl (Glucophage) 850 mg PO BIDWM [facility] Last Admin: 08/23/18 07:47 Dose: 850 mg Methylprednisolone (Solu-Medrol) 40 mg IVP Q6H [facility] Last Admin: 08/23/18 09:48 Dose: 40 mg Multivitamins/Minerals (Therapeutic-M Tab) 1 tab PO DAILY [facility] Last Admin: 08/23/18 09:47 Dose: 1 tab Nicotine (Nicoderm Cq) 1 patch TD DAILY [facility] Last Admin: 08/23/18 09:45 Dose: 1 patch Nystatin (Nystop Topical Powder) 1 applic TOP TID [facility] Last Admin: 08/23/18 09:47 Dose: 1 applic Risperidone (Risperdal Tab) 0.5 mg PO BID [facility] Last Admin: 08/23/18 09:45 Dose: 0.5 mg Thiamine HCl (Vitamin B1 Tab) 100 mg PO DAILY [facility] Last Admin: 08/23/18 09:46 Dose: 100 mg Trazodone HCl (Desyrel) 50 mg PO HS PRN PRN Reason: Insomnia - Labs Labs: 08/23/18 05:30 08/23/18 05:30 - Constitutional Appears: No Acute Distress - Head Exam Head Exam: ATRAUMATIC, NORMOCEPHALIC - Respiratory Exam Respiratory Exam: Wheezes (expiratory ). absent: Rales - Cardiovascular Exam Cardiovascular Exam: REGULAR RHYTHM, +S1, +S2 - Neurological Exam Neurological Exam: Alert, Awake - Psychiatric Exam Psychiatric exam: Normal Affect, Normal Mood - Skin Skin Exam: Intact Assessment and Plan - Assessment and Plan (Free Text) Plan: 52 y/o M with PMHx of HTN, DM, diabetes, COPD and alcohol abuse admitted for COPD exacerbation and confusion, brought to ER by EMS for evaluation. Pt found in the street confused,with wheezing and Dyspnea at rest Assessment/Plan 1) COPD exacerbation c/w duoneb selvin q4h -solumedrol 40 mg IV Q8h -CXR no active disease -Azithromycin 500 mg IV daily and Mucinex 2) AMS -CT Head no intracraneal hemorrhage -may be 2/2 metabolic encephalopathy -Psych consult appreciated started Risperdal, Ativan and Trazodone. -may be transfered to psyq unit 3) ETOH abuse -ETOH level less than 10 - withdrawal precautions. -CIWA score 0 - Ativan 1mg TID selvin -c/w Start Thiamine, Folic acid 4) DM - Uncontrolled for steroid use -c/w glucotrol XL 5 mg daily -started metformin 850 mg BID -SSI -f/u hgb a1c 6,7 5) HTN -chronic -controlled on admission - no on medications -will monitor 6) Rash, likely fungal - UA unremarkable - Start nystatin powder TID 7) DVT prophylaxis -lovenox 40 mg sc daily
[2018-08-24] MEDS: MethylPREDNISolone 40 mg Vial IVP SCH ×3 (00:39→16:51)
[2018-08-24] MEDS: Albuterol-Ipratrop 3 mg / 0.5 (3 ml) UD INH SCH ×4 (05:00→15:45)
[2018-08-24] MEDS: Insulin Lispro (humaLOG) 100 Units/ml Inj SC SCH ×3 (08:24→16:53)
[2018-08-24] MEDS: GlipiZIDE 5 mg SR Tab PO SCH (08:25)
[2018-08-24] MEDS: Multivitamin With Minerals Tab PO SCH (08:26)
[2018-08-24] MEDS: Azithromycin 500 MG in Sodium Chloride 0.9% 250 ML IVPB SCH (08:27)
[2018-08-24] MEDS: Enoxaparin 40 mg Syringe SC SCH (08:28)
[2018-08-24] MEDS: guaiFENesin 600 mg ER Tab PO SCH (08:29)
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
[2018-08-24 18:23] VITALS: BP 150/85; PULSE 93; RESP 20; TEMP 97.9; O2SAT 94
== END 2018-08-24 19:00 | DRG 190 ==
LOC: H.ER 01:12 → H.ERHOLD 06:22 → H.MEDSURG1 08:50 → OBSVTOIN 08-23 11:05
PROVIDERS: ADMIT Internal Medicine; ATTEND Internal Medicine
PROC: 3E0F7GC Introduction of Other Therapeutic Substance into Respiratory Tract, Via Natural or Artificial Opening (ICD-10-PCS; principal; 2018-08-21)
PROC: 3E02340 Introduction of Influenza Vaccine into Muscle, Percutaneous Approach (ICD-10-PCS; 2018-08-21)
PROC: 3E0234Z Introduction of Serum, Toxoid and Vaccine into Muscle, Percutaneous Approach (ICD-10-PCS; 2018-08-21)
DX: J44.1 Chronic obstructive pulmonary disease with (acute) exacerbation (principal); G93.41 Metabolic encephalopathy; F10.251 Alcohol dependence with alcohol-induced psychotic disorder with hallucinations; F10.239 Alcohol dependence with withdrawal, unspecified; R09.02 Hypoxemia; Z59.0 Homelessness; E11.65 Type 2 diabetes mellitus with hyperglycemia; F10.229 Alcohol dependence with intoxication, unspecified; F32.9 Major depressive disorder, single episode, unspecified; I10 Essential (primary) hypertension; T38.0X5A Adverse effect of glucocorticoids and synthetic analogues, initial encounter; Z79.84 Long term (current) use of oral hypoglycemic drugs; Z79.899 Other long term (current) drug therapy; Z91.19 Patient's noncompliance with other medical treatment and regimen; R06.82 Tachypnea, not elsewhere classified; R15.9 Full incontinence of feces; R21 Rash and other nonspecific skin eruption; R51 Headache; Z23 Encounter for immunization

== ENCOUNTER 2018-09-26 14:13 | Emergency (ER) | payer MEDICARE ==
[2018-09-26 14:13] VITALS: BMI 28.0
[2018-09-26 14:18] VITALS: RESP 18
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
[2018-09-26 15:35] LABS: BASO # 0.1 K/uL (0.0-0.2); BASO % 0.4 % (0.0-2.0); EOS # 0.1 K/uL (0.0-0.7); EOS % 0.6 % (0.0-4.0); LYMPH # 1.4 K/uL (1.0-4.3); LYMPH % 9.4 % (20.0-40.0); MEAN CELL VOLUME 92.3 fl (80.0-94.0); MEAN CORPUSCULAR HEMOGLOBIN 30.3 pg (27.0-31.0); MEAN CORPUSCULAR HGB CONC 32.8 g/dL (33.0-37.0); MEAN PLATELET VOLUME 8.8 fl (7.2-11.7); MONO % 6.9 % (0.0-10.0); NEUT # 12.4 K/uL (1.8-7.0); NEUT % 82.7 % (50.0-75.0); NRBC % 0.1 % (0.0-0.0); PLATELET COUNT 241 K/uL (130-400); RBC 4.96 Mil/uL (4.40-5.90); RED CELL DISTRIBUTION WIDTH 14.1 % (11.5-14.5)
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
[2018-09-26 15:54] LABS: BLOOD UREA NITROGEN 7 mg/dl (9-20); CALCIUM 9.6 mg/dL (8.4-10.2); GFR NON-AFRICAN AMERICAN > 60
[2018-09-26 16:08] LABS: BANDS 2 % (0-2); EOSINOPHIL 1 % (0-7); LYMPHOCYTE 12 % (20-50); MONOCYTE 9 % (0-10); NEUTROPHIL 76 % (42-75); PLATELET CLUMPS PRESENT; PLATELET ESTIMATE NORMAL (NORMAL); TOTAL CELLS COUNTED 100
[2018-09-26 16:13] LABS: BARBITURATES, UR NEGATIVE (NEGATIVE); BENZODIAZEPINES, UR NEGATIVE (NEGATIVE); OPIATES, UR NEGATIVE (NEGATIVE); PHENCYCLIDINE, UR NEGATIVE (NEGATIVE)
[2018-09-26 16:15] LABS: ALB/GLOB RATIO 1.2 (1.0-2.1); ALBUMIN 4.7 g/dL (3.5-5.0)
[2018-09-26 16:16] LABS: ALT/SGPT 16 U/L (21-72); AST/SGOT 41 U/L (17-59); B-TYPE NATRIURETIC PEPTIDE 189 pg/ml (0-900)
[2018-09-26] MEDS ORDERED: Bacitracin 500 Units/gm Oint Foilpak UD ONE (17:06)
[2018-09-26] MEDS ORDERED: Bacitracin 500 Units/gm Oint Foilpak UD TOP STA (17:07)
--- NOTE | 2018-09-26 17:11 | RAD ---
Date of service: 09/26/2018 HISTORY: Wheezing COMPARISON: Comparison made with chest radiograph 08/21/2018. TECHNIQUE: Chest PA and lateral views FINDINGS: LUNGS: No active pulmonary disease. There is an elliptical shaped nodular density left lung apex/upper lobe junction overlies the posterior 4th rib and and partially overlies the left anterior 1st rib. This probably represents a small granuloma. Nonemergent CT scan of the chest recommended for confirmation and exclude other pathology. PLEURA: No significant pleural effusion identified. No pneumothorax apparent. CARDIOVASCULAR: No aortic atherosclerotic calcification present. Normal cardiac size. No pulmonary vascular congestion. OSSEOUS STRUCTURES: No significant abnormalities. VISUALIZED UPPER ABDOMEN: Normal. OTHER FINDINGS: None. IMPRESSION: There is an elliptical shaped nodular density left lung apex/upper lobe junction overlies the posterior 4th rib and and partially overlies the left anterior 1st rib. This probably represents a small granuloma. Nonemergent CT scan of the chest recommended for confirmation and exclude other pathology.. Note this report was placed in PA review folder follow up.
[2018-09-26 17:21] VITALS: BP 157/87; PULSE 87; TEMP 97.9; O2SAT 98
--- NOTE | 2018-09-27 17:44 | CARD ---
APPROVED REPORT Date of service: 09/26/2018 EKG Measurement Heart [id number] <Conclusion> Sinus tachycardia Possible Left atrial enlargement Left ventricular hypertrophy Abnormal ECG
== END 2018-09-26 17:20 | disposition home or self-care (01) ==
LOC: H.ER 14:13
DX: H57.11 Ocular pain, right eye (principal)